=== PATIENT | male | born 1960 | race Asian ===

== ENCOUNTER 2020-08-15 16:19 | Emergency (ER) | payer OTHER ==
[~2020-08-15] VITALS: Ht 162.6 cm; Wt 76.7 kg
[2020-08-15 16:33] VITALS: BP 157/98
[2020-08-15 21:59] LABS: BASOPHILS % (AUTO) 0.7 % (0.0-2.0); EOSINOPHILS # (AUTO) 0.1 K/uL (0-0.4); EOSINOPHILS % (AUTO) 2.3 % (0.0-4.0); HEMATOCRIT 43.9 % (36-52); HEMOGLOBIN 14.5 g/dL (12.0-18.0); LYMPHOCYTES # (AUTO) 1.8 K/uL (2.0-11.5); LYMPHOCYTES % (AUTO) 30.6 % (20.5-51.1); MEAN CORPUSCULAR HEMOGLOBIN 28 pg (27-31); MEAN CORPUSCULAR HGB CONC 33 g/dL (33-37); MEAN CORPUSCULAR VOLUME 85.8 fL (80-94); MONOCYTES # (AUTO) 0.3 K/uL (0.8-1.0); MONOCYTES % (AUTO) 5.9 % (1.7-9.3); NEUTROPHILS # (AUTO) 3.5 K/uL (1.8-7.7); NEUTROPHILS % (AUTO) 60.5 % (42.2-75.2); PLATELET COUNT (AUTO) 320 K/uL (140-450); RED BLOOD CELL COUNT(AUTO) 5.12 MIL/uL (4.20-6.10); RED CELL DISTRIBUTION WIDTH 16.5 % (11.6-13.7); WHITE BLOOD COUNT (AUTO) 5.7 K/uL (4.8-10.8)
[2020-08-15 22:09] LABS: ANION GAP 11.6 (8-16); CARBON DIOXIDE 31.1 mmol/L (21-32); CREATININE 0.9 mg/dL (0.6-1.3); POTASSIUM 3.7 mmol/L (3.5-5.1)
[2020-08-15 22:14] LABS: ALBUMIN 3.9 g/dL (3.4-5.0); TOTAL BILIRUBIN 0.5 mg/dL (0.0-1.0)
[2020-08-15 23:55] VITALS: BP 157/98
== END 2020-08-15 23:55 | disposition home or self-care (01) ==
LOC: MED 16:19
DX: K62.5 Hemorrhage of anus and rectum (principal)
CPT/HCPCS: 36415; 80053; 83690; 85025; 85610; 99283

== ENCOUNTER 2020-09-25 11:09 | Day surgery (SDC) | payer OTHER ==
[2020-09-25] MEDS ORDERED: MIDAZOLAM 5 MG/5 ML VIAL ONE (13:02)
[2020-09-25] MEDS ORDERED: fentaNYL citrate 0.05 MG/ML VIAL ONE (13:02)
[2020-09-25] MEDS ORDERED: LIDOCAINE 2% 100 MG/5 ML UJET TP ONE (13:02)
[2020-09-25] MEDS ORDERED: diphenhydrAMINE 50 MG/ML VIAL ONE (13:02)
[2020-09-25] MEDS ORDERED: fentaNYL citrate 0.05 MG/ML VIAL IVP ONE (16:50)
[2020-09-25] MEDS ORDERED: MIDAZOLAM 2 MG/2 ML VIAL IVP ONE (16:50)
== END 2020-09-25 15:00 | disposition home or self-care (01) ==
LOC: MDS 11:09 → MMU 11:12 → MDS 15:00
PROVIDERS: ATTEND Internal Medicine Gastroenterology
DX: K62.5 Hemorrhage of anus and rectum (principal); K63.5 Polyp of colon; I10 Essential (primary) hypertension; J45.909 Unspecified asthma, uncomplicated; M10.9 Gout, unspecified; Z79.82 Long term (current) use of aspirin; Z79.899 Other long term (current) drug therapy
CPT/HCPCS: 45385; J2250; J3010; J1200

== ENCOUNTER 2021-05-18 20:00 | Emergency (ER) | payer OTHER ==
[~2021-05-18] VITALS: Ht 160 cm; Wt 76.7 kg
[2021-05-18 20:06] VITALS: BP 144/95
--- NOTE | 2021-05-18 20:20 | NUR ---
PATIENT AMBULATED TO BED 10
[2021-05-18 21:23] LABS: BASOPHILS # (AUTO) 0.1 K/uL (0.00-0.22); BASOPHILS % (AUTO) 1.2 % (0.0-2.0); EOSINOPHILS # (AUTO) 0.2 K/uL (0-0.4); EOSINOPHILS % (AUTO) 3.5 % (0.0-4.0); HEMATOCRIT 43.1 % (36-52); HEMOGLOBIN 14.4 g/dL (12.0-18.0); LYMPHOCYTES # (AUTO) 1.5 K/uL (2.0-11.5); LYMPHOCYTES % (AUTO) 28.3 % (20.5-51.1); MEAN CORPUSCULAR HEMOGLOBIN 28 pg (27-31); MEAN CORPUSCULAR HGB CONC 33 g/dL (33-37); MEAN CORPUSCULAR VOLUME 84.1 fL (80-94); MONOCYTES # (AUTO) 0.3 K/uL (0.8-1.0); MONOCYTES % (AUTO) 6.4 % (1.7-9.3); NEUTROPHILS # (AUTO) 3.3 K/uL (1.8-7.7); NEUTROPHILS % (AUTO) 60.6 % (42.2-75.2); PLATELET COUNT (AUTO) 339 K/uL (140-450); RED BLOOD CELL COUNT(AUTO) 5.13 MIL/uL (4.20-6.10); RED CELL DISTRIBUTION WIDTH 15.8 % (11.6-13.7); WHITE BLOOD COUNT (AUTO) 5.4 K/uL (4.8-10.8)
[2021-05-18 21:58] LABS: ALBUMIN 3.6 g/dL (3.4-5.0); ANION GAP 11.2 (8-16); CARBON DIOXIDE 29.2 mmol/L (21-32); CREATININE 1.1 mg/dL (0.6-1.3); POTASSIUM 3.4 mmol/L (3.5-5.1); TOTAL BILIRUBIN 0.5 mg/dL (0.0-1.0)
[2021-05-18] MEDS ORDERED: DOCU-299 PO (23:06)
[2021-05-18 23:20] VITALS: BP 132/72
--- NOTE | 2021-05-18 23:21 | NUR ---
Patient discharged with v/s stable. Written and verbal after care instructions given and explained. Patient alert, oriented and verbalized understanding of instructions. Ambulatory with steady gait. All questions addressed prior to discharge. ID band removed. Patient advised to follow up with PMD. Rx of COLACE given. Patient educated on indication of medication including possible reaction and side effects. Opportunity to ask questions provided and answered.
== END 2021-05-18 23:20 | disposition home or self-care (01) ==
LOC: MED 20:00
DX: K62.5 Hemorrhage of anus and rectum (principal); J45.909 Unspecified asthma, uncomplicated; I10 Essential (primary) hypertension; Z79.899 Other long term (current) drug therapy
CPT/HCPCS: 36415; 80053; 85025; 99283

== ENCOUNTER 2023-01-05 11:13 | Emergency (ER) | payer OTHER ==
[~2023-01-05] VITALS: Ht 165.1 cm; Wt 78.5 kg
[~2023-01-05 11:13] MED LIST: DOCU-299 PO
[2023-01-05 11:23] VITALS: BP 130/90; PULSE 112; RESP 18; TEMP 97.8; O2SAT 95
[2023-01-05] MEDS ORDERED: LID5T TP (13:29)
[2023-01-05] MEDS ORDERED: IBUP-2213 PO (13:29)
[2023-01-05] MEDS ORDERED: ACET-2619 PO (13:29)
[2023-01-05] MEDS ORDERED: CYCL-711 PO (13:30)
== END 2023-01-05 13:42 | disposition home or self-care (01) ==
LOC: MED 11:13
DX: S46.811A Strain of other muscles, fascia and tendons at shoulder and upper arm level, right arm, initial encounter (principal); S76.812A Strain of other specified muscles, fascia and tendons at thigh level, left thigh, initial encounter; W18.30XA Fall on same level, unspecified, initial encounter; Y93.89 Activity, other specified; Y92.89 Other specified places as the place of occurrence of the external cause; Y99.8 Other external cause status
CPT/HCPCS: 72170; 73030; 99284